=== PATIENT | female | born 1960 | race Caucasian/White ===

== ENCOUNTER 2023-07-07 11:35 | Emergency (ER) | payer OTHER ==
[~2023-07-07] VITALS: Ht 157.5 cm; Wt 50.3 kg
[~2023-07-07 11:35] MED LIST: ASPI-618 PO; LEVO500T90 PO; LOSA50TA3 PO
[2023-07-07] MEDS ORDERED: IV NORMAL SALINE 500 ML BAG IV ONE ×2 (12:15→14:00)
[2023-07-07 12:34] LABS: BASOPHILS % (AUTO) 0.2 % (0.0-2.0); EOSINOPHILS % (AUTO) 0.3 % (0.0-7.0); HEMATOCRIT 42.7 % (31.2-41.9); HEMOGLOBIN 14.1 g/dL (10.9-14.3); LYMPHOCYTES # (AUTO) 0.4 K/uL (0.8-4.8); LYMPHOCYTES % (AUTO) 3.2 % (20.5-51.5); MEAN CORPUSCULAR HEMOGLOBIN 26.5 uug (24.7-32.8); MEAN CORPUSCULAR HGB CONC 33 g/dL (32.3-35.6); MEAN CORPUSCULAR VOLUME 80.1 fL (75.5-95.3); MONOCYTES # (AUTO) 0.5 K/uL (0.1-1.30); MONOCYTES % (AUTO) 3.9 % (0.0-11.0); NEUTROPHILS # (AUTO) 10.7 K/uL (1.8-8.9); NEUTROPHILS % (AUTO) 92.4 % (38.5-71.5); PLATELET COUNT (AUTO) 245 K/uL (179-408); RED BLOOD CELL COUNT(AUTO) 5.33 MIL/uL (3.63-4.92); RED CELL DISTRIBUTION WIDTH 14.4 % (12.3-17.7); WHITE BLOOD COUNT (AUTO) 11.5 K/uL (3.8-11.8)
[2023-07-07 12:35] LABS: DIFFERENTIAL COMMENT 1
[2023-07-07 12:48] LABS: CALCIUM 9.3 mg/dL (8.5-10.1); CREATININE 0.8 mg/dL (0.6-1.3)
[2023-07-07 13:02] LABS: ALBUMIN 3.9 g/dL (3.4-5.0); BILIRUBIN,DIRECT 0.2 mg/dL (0.0-0.2); BILIRUBIN,TOTAL 0.6 mg/dL (0.2-1.0); TOTAL PROTEIN, SERUM 8.1 g/dL (6.4-8.2)
[2023-07-07] MEDS ORDERED: IOHEXOL 300MG/ML 100 ML INFUS..BTL ONE (13:03)
[2023-07-07] MEDS ORDERED: IV NORMAL SALINE 250 ML IV ONE (13:03)
[2023-07-07] MEDS ORDERED: SWABABLE VALVE TRANSFER SET EA MC ONE (13:03)
[2023-07-07 13:44] LABS: *BILIRUBIN,URIN NEGATIVE (NEGATIVE); *CLARITY,URINE CLEAR (CLEAR); *COLOR,URINE YELLOW (YELLOW); *KETONES,URINE NEGATIVE (NEGATIVE); *PROTEIN,URINE NEGATIVE (NEGATIVE); *UROBILINOGEN,URINE 0.2 E.U./dl (NORMAL); LEUKOCYTE ESTERASE ,URINE NEGATIVE (NEGATIVE); NITRITE, URINE NEGATIVE (NEGATIVE); UGLUCOSE NEGATIVE (NEGATIVE)
[2023-07-07 13:53] LABS: *BLOOD, URINE TRACE (NEGATIVE)
[2023-07-07] MEDS ORDERED: levoFLOXacin 750MG/D5W 750 MG in PREMIXED 1 EACH IV SCH (14:00)
[2023-07-07 14:29] LABS: BACTERIA,URINE NONE SEEN /HPF (NONE SEEN); RBC,URINE 0-3 /HPF (0-3); SQUAMOUS EPITHELIAL CELL,UR FEW /HPF (NONE SEEN); WBC,URINE 0-3 /HPF (0-3)
[2023-07-07] MEDS ORDERED: levoFLOXacin 750MG/D5W 150 ML IV ONE (14:32)
[2023-07-07] MEDS ORDERED: LEVO500T90 PO (15:58)
[2023-07-07] MEDS ORDERED: METR-147 PO (15:58)
[2023-07-07 16:14] VITALS: BP 122/80; O2SAT 99
== END 2023-07-07 16:34 | disposition home or self-care (01) ==
LOC: ER 11:35
DX: K52.9 Noninfective gastroenteritis and colitis, unspecified (principal); Z88.0 Allergy status to penicillin; Z79.82 Long term (current) use of aspirin; Z79.2 Long term (current) use of antibiotics; Z79.899 Other long term (current) drug therapy
CPT/HCPCS: 99285; 74177; 96365; 96361; 96366; 80076; 80048; 81001; 83690; 85025; 84145; 87040; 36415; 83605; Q9967; J7040; J1956 ×2; A4606; A4663